=== PATIENT | male | born 1975 | race Caucasian/White ===

== ENCOUNTER 2021-07-26 00:39 | Emergency (ER) | payer OTHER, MEDICAID, SELFPAY ==
[2021-07-26 00:47] VITALS: BP 133/88; PULSE 88; RESP 14; TEMP 37.3; O2SAT 98; BMI 30.5
--- NOTE | 2021-07-26 00:53 | PC.NURSE ---
Pt reports use of Mupirocin x 12hrs, states that heat improves pain and has been taking OTC NSAIDS. Pt reports that he had an area near this that he punctured and drains fluid out of.
--- NOTE | 2021-07-26 00:57 | ED.SKABFB ---
HPI - Skin/Abscess/Foreign Bdy General Chief complaint: Skin/Abscess/Foreign Body Stated complaint: swollen area on left ear thinks infection Time Seen by Provider: 07/26/21 00:55 Source: patient Mode of arrival: Ambulatory Limitations: no limitations History of Present Illness HPI narrative: The patient is a 45-year-old male who presents with all left ear pain and swelling. He states that he recently relapsed into methamphetamine abuse. There are 2 areas on the external part of his ear that has become swollen. He thought 1 of them was draining he picked at it. It is more swollen. He has no fever or chills. He has been putting mupirocin ointment on it and he was taking some amoxicillin from a friend as well. However pain got worse this evening. Related Data Previous Rx's Medication Instructions Recorded sulfamethoxazole 800 1 tab PO BID 7 Days #14 tab 07/26/21 mg-trimethoprim 160 mg tablet (Bactrim DS) Allergies Allergy/AdvReac Type Severity Reaction Status Date / Time Penicillins [PENICILLINS] Allergy Unknown Unverified 03/11/18 12:53 hydrocodone [From VICODIN] AdvReac Mild ITCHY NOSE Unverified 03/11/18 12:53 Review of Systems Review of Systems Narrative: GENERAL: Denies chills,fever HEENT: Denies throat pain RESPIRATORY: Denies dyspnea, cough, wheezing CARDIOVASCULAR: Denies chest pain, palpitations GASTROINTESTINAL: Denies nausea, vomiting MUSCULOSKELETAL: Denies extremity pain, injury SKIN: See HPI NEUROLOGIC: Denies weakness, dizziness, headache, numbness 8 point review of systems is negative except for those stated above and HPI Patient History Social History Smoking Status: Current every day smoker Smoking Status: Current every day smoker Substance Use Type: former substance user and methamphetamine Exam Initial Vital Signs Initial Vital Signs: Vital Signs Temperature 99.2 F 07/26/21 00:47 Pulse Rate 88 07/26/21 00:47 Respiratory Rate 14 07/26/21 00:47 Blood Pressure 133/88 07/26/21 00:47 Pulse Oximetry 98 07/26/21 00:47 GENERAL: Well-appearing, well-nourished and in no acute distress. EAR: Right ear within normal limits external Left ear swelling no gross fluctuation or drainage. CARDIOVASCULAR: peripheral pulses in tact, cap refill <2 sec RESPIRATORY: No respiratory distress, speaks in full sentences without difficulty EXTREMITIES: Normal range of motion, no clubbing or edema. Neurovascularly intact NEUROLOGICAL: Cranial nerves II through XII grossly intact. Normal gait and speech. SKIN: Warm, dry, no petechiae, no rashes or lesions. HENMT Ear Left: 1. Swelling mild erythema no fluctuation 2. Swelling no fluctuation no drainage Course Orders Ordered: Discontinued Medications Trimethoprim/Sulfamethoxazole (Trimeth/Sulfa 160/800 Prepack) 1 bottle MISC SEEINSTR ONE Stop: 07/26/21 01:03 Trimethoprim/Sulfamethoxazole (Trimeth/Sulfa 160/800 (Ds) Tablet) 1 tab PO NOW ONE Stop: 07/26/21 01:06 Last Admin: 07/26/21 01:08 Dose: 1 tab Documented by: TOM Vital Signs Vital signs: Vital Signs - 8 hr 07/26/21 00:47 Temperature 99.2 F Pulse Rate 88 Respiratory Rate 14 Blood Pressure 133/88 Pulse Oximetry 98 MDM - Skin/Abscess/Foreign Bdy MDM Narrative Medical decision making narrative: No fluctuation that is ready to drain. Although it is quite swollen. Minimal erythema. Will treat with antibiotics. Discharge Plan Departure Patient Disposition: Home Clinical Impression: Abscess of external ear, left Instructions: DI for Skin Abscess Activity Restrictions/Additional Instructions: *You have been diagnosed with left ear abscess *What to do: Recommend warm compresses 2 to 3 times a day to help bring infection to surface. This is not ready to be drained at this time but may need draining later if antibiotics do not help. *Continue to take medications as directed Bactrim 1 tablet twice a day for 7 days Motrin 800 mg every 8 hours if needed for [id number] pain *Follow up with your primary care provider in 2-3 days *Return to ER if you should have increasing redness, swelling, pain, drainage or any new, worsening or concerning symptoms Prescriptions: New sulfamethoxazole-trimethoprim [Bactrim DS] 800-160 mg tablet 1 tab PO BID 7 Days Qty: 14 RF: 0
[2021-07-26] MEDS: TRIMETH/SULFA 160/800 (DS) TABLET 1 TAB PO (01:08)
== END 2021-07-26 01:12 | disposition home or self-care (01) ==
PROVIDERS: Emergency Provider Emergency Medicine
DX: H60.02 Abscess of left external ear (principal)
CPT/HCPCS: 99283